=== PATIENT | female | born 1980 | race Caucasian/White ===

== ENCOUNTER → 2023-03-29 10:30 | Outpatient (CLI) | payer BC, SELFPAY ==
[2023-03-29 19:44] LABS: Alanine Aminotransferase 61 IU/L (<35); Albumin Globulin Ratio 1.3 (1.0-2.8); Alkaline Phosphatase 87 U/L (38-126); Aspartate Aminotransferase 42 IU/L (14-36); Bilirubin Total 0.5 mg/dL (0.2-1.3); Bilirubin Unconjugated 0.4 mg/dL (0.0-1.1); Globulin 3.2 g/dL (1.7-4.1); HEMOLYSIS < 15 (0-50); Total Protein 7.2 g/dL (6.3-8.2)
[2023-03-29 20:19] LABS: Ferritin 24 ng/mL (6-137)
[2023-03-31 05:32] LABS: Hepatitis B Core AB w/Reflex Negative (Negative)
== END ==
PROVIDERS: PCP Physician Assistant; Visit Provider Acupuncturist
DX: L43.9 Lichen planus, unspecified (principal); L29.9 Pruritus, unspecified; R53.83 Other fatigue
CPT/HCPCS: 80076; 82728; 86704